=== PATIENT | female | born 1995 | race Caucasian/White ===

== ENCOUNTER 2020-10-15 15:51 | Emergency (ER) | payer OTHER, SELFPAY ==
[2020-10-15 16:04] VITALS: BP 110/80; PULSE 84; RESP 16; TEMP 36.3; O2SAT 100
--- NOTE | 2020-10-15 16:51 | ED.FEMALEGU ---
HPI - Female Genitourinary General Chief complaint: Urogenital-Female Stated complaint: UTI Time Seen by Provider: 10/15/20 16:39 Source: patient and RN notes reviewed Mode of arrival: ambulatory Limitations: no limitations History of Present Illness HPI Narrative: Patient presents today complaining of a 1 week history of dysuria with some lower abdominal discomfort. Denies frequency, hematuria, back pain. She has tried no [id number] treatment prior to arrival. MD elicited complaint: dysuria Related Data Allergies Allergy/AdvReac Type Severity Reaction Status Date / Time azithromycin Allergy Itching Verified 10/15/20 16:54 clarithromycin [From Biaxin] Allergy Nausea Verified 10/15/20 16:54 Review of Systems Review of Systems: Narrative: CONSTITUTIONAL: Denies body aches, fever, chills, or sweats. EYES: Denies visual changes, redness, or discharge. ENT: Denies rhinorrhea, congestion, sore throat, or otalgia. CARDIOVASCULAR: Denies chest pain, palpitations, or edema. RESPIRATORY: Denies cough or dyspnea. GASTROINTESTINAL: Denies abdominal pain, nausea, vomiting, or diarrhea. GENITOURINARY: Denies frequency or hematuria.+ Dysuria SKIN: Denies rash, itching, or wounds. MUSCULOSKELETAL: Denies back pain, joint pain, or myalgia. NEUROLOGIC: Denies headache, numbness, tingling, or weakness. PSYCH: Denies depression or anxiety. [facility] Past Medical History Medical History (Updated 10/15/20 @ 17:01 by Sammi Bailey, [facility], ) Autism Comments At time of signature, I have reviewed and agree with nursing past medical, surgical, social and family history unless otherwise noted. Please see nursing chart for further information. There is no relevant family history pertinent to the presenting complaint Exam Narrative: Exam Narrative: GENERAL: Well-appearing, well-nourished, and in no acute distress. HEAD: Normocephalic, atraumatic. EYES: EOMI. No redness or drainage. Conjunctivae normal. ENT: Mucous membranes pink and moist. NECK: Normal AROM. CHEST: No respiratory distress. MUSCULOSKELETAL: No bony tenderness. EXTREMITIES: Normal range of motion. No edema. SKIN: Warm, dry, no rash. Capillary refill normal. Normal skin turgor. NEURO: No focal deficits. Alert and oriented x3. Gait steady. PSYCH: Normal affect. No signs of depression or anxiety. Course Vital Signs Vital signs: Vital Signs Temperature 97.4 F L 10/15/20 16:04 Pulse Rate 84 10/15/20 16:04 Respiratory Rate 16 10/15/20 16:04 Blood Pressure 110/80 10/15/20 16:04 Pulse Oximetry 100 10/15/20 16:04 Temperature 97.4 F L 10/15/20 16:04 Pulse Rate 84 10/15/20 16:04 Respiratory Rate 16 10/15/20 16:04 Blood Pressure 110/80 10/15/20 16:04 Pulse Oximetry 100 10/15/20 16:04 Reviewed MDM - Female Genitourinary Differential Diagnosis Differential diagnosis: Likely urinary tract infection, cystitis and other (Pyelonephritis, interstitial cystitis, vulvovaginitis) Lab Data Attestation: I reviewed the patient's lab results. Labs: Urine Glucose Negative Reference Range: Negative Urine Bilirubin Negative Reference Range: Negative Urine Ketone Negative Reference Range: Negative Urine Specific [place] 1.020 Reference Range:1.001-1.035 Urine Blood 2+ Reference Range: Negative * * Urine pH 7.0 Reference Range: 5.0-9.0 Urine Protein Negative Reference Range: Negative Urine Urobilinogen 0.2
== END 2020-10-15 17:00 | disposition home or self-care (01) ==
PROVIDERS: Emergency Provider Nurse Practitioner; PCP Nurse Practitioner Psychiatric/Mental Health
DX: N30.01 Acute cystitis with hematuria (principal); E78.00 Pure hypercholesterolemia, unspecified; E03.9 Hypothyroidism, unspecified; F84.0 Autistic disorder; F41.9 Anxiety disorder, unspecified
CPT/HCPCS: 81003; 87086; 87088; 99203; G0463

== ENCOUNTER 2021-01-01 13:02 | Emergency (ER) | payer OTHER, SELFPAY ==
--- NOTE | ~2021-01-01 | XR_ITS ---
EXAMINATION: XR tibia fibula RT 2V EXAM DATE: 01/01/2021 13:20 INDICATION: Initial encounter following injury, with pain of the right tibia/fibula. Fell yesterday. TECHNIQUE: Right tibia/fibula frontal and lateral projections obtained and reviewed. There is no derrick or study for comparison. FINDINGS: Right tibial and fibular shafts unremarkable. . There are no acute fractures or dislocati ons identified. There is no subcutaneous gas. The soft tissue is unremarkable. There are no radio paque foreign bodies. IMPRESSION: No acute osseous findings. Reviewed, dictated and finalized at location A. IMPRESSION: No acute osseous findings.
[2021-01-01 13:10] VITALS: BP 116/74; PULSE 80; RESP 16; TEMP 37.1; O2SAT 100
[2021-01-01 13:16] VITALS: BP 116/74; PULSE 80; RESP 16; TEMP 37.1; O2SAT 100
--- NOTE | 2021-01-01 13:30 | ED.LOWEXIN ---
HPI - Extremity Injury (Lower) General Chief Complaint: Extremity Injury, Lower Stated Complaint: right knee pain Time Seen by Provider: 01/01/21 13:24 Source: patient and RN notes reviewed Mode of arrival: ambulatory Limitations: no limitations History of Present Illness HPI Narrative: 25-year-old female presents concern for right anterior leg pain, just below the knee. Reports bruising and superficial abrasion. Reports she fell yesterday landing on the concrete. Reports she is taking ibuprofen for pain. She denies decreased constipation range of motion. MD complaint: leg injury Related Data Home Medications Medication Instructions Recorded Confirmed atorvastatin 01/01/21 cetirizine mg 01/01/21 clonazepam 01/01/21 divalproex PO 01/01/21 hydroxyzine pamoate 01/01/21 levothyroxine 01/01/21 metoprolol succinate PO 01/01/21 montelukast mg 01/01/21 norethindrone-e.estradiol-iron tablet 01/01/21 [ ()] sertraline mg 01/01/21 Allergies Allergy/AdvReac Type Severity Reaction Status Date / Time clarithromycin Allergy Mild nausea Verified 04/27/16 05:26 azithromycin Allergy Unknown ITCHING Verified 04/27/16 05:26 Review of Systems Review of Systems: CONSTITUTIONAL: Denies malaise, chills, sweats, or fever. SKIN: Reports superficial abrasion to the right leg MUSCULOSKELETAL: Reports right anterior leg pain and swelling NEUROLOGIC: Denies numbness, weakness All systems reviewed & are unremarkable except as noted in HPI and below PMFSH Comments At time of signature, agree with nursing past medical, surgical, social and family history. There is no relevant family history pertinent to the presenting complaint Exam Narrative: GENERAL: Well-appearing, well-nourished, and in no acute distress. HEAD: Normocephalic, atraumatic. EYES: PERRLA, conjunctivae clear NECK: Supple. CHEST: Speaks in full sentences. No respiratory distress. HEART: Regular rate and rhythm. Normal and equal peripheral pulses. EXTREMITIES: Right knee, leg, ankle have grossly normal strength and sensation, normal range of motion. Mild anterior localized edema below the knee with very mild ecchymosis. Normal sensation with sensitivity to light touch and pain. No point tenderness. No open wounds, no skin tenting, no devitalized tissue or atrophy, no trophic changes, no obvious deformity, alignment normal, nearby joints and structures intact. Distal pulses palpable and equal bilaterally, skin warm, dry, pink. Capillary refill less than 3 seconds. SKIN: Warm, dry, no rash. Very superficial abrasion noted to the anterior right lower leg below the knee, without red or pink tissue bed, skin intact NEURO: Alert and oriented x3. PSYCH: Normal mood and affect Course Course Emergency Course: Patient is aware of diagnosis, understands and agrees to treatment plan. Anticipatory guidance given. Patient agrees to follow-up as directed and is aware of reasons to seek care at the emergency department. Portions of this record may have been created with voice recognition software Vital Signs Vital signs: Vital Signs Temperature 98.7 F 01/01/21 13:10 Pulse Rate 80 01/01/21 13:10 Respiratory Rate 16 01/01/21 13:10 Blood Pressure 116/74 01/01/21 13:10 Pulse Oximetry 100 01/01/21 13:10 Temperature 98.7 F 01/01/21 13:16 Pulse Rate 80 01/01/21 13:16 Respiratory Rate 16 01/01/21 13:16 Blood Pressure 116/74 01/01/21 13:16 Pulse Oximetry 100 01/01/21 13:16 Reviewed. MDM - Extremity Injury (Lower) MDM Narrative Medical decision making narrative: Patients injury and pain is consistent with musculoskeletal etiology. No signs of neurological or vascular compromise on exam. Compartments and tissues are soft without signs of compartment syndrome. Pain is felt appropriate for further evaluation on an outpatient basis. Critical Care Time Critical Care Time Critical Care Time: No Discharge Plan Discharge Cli
== END 2021-01-01 13:39 | disposition home or self-care (01) ==
PROVIDERS: Emergency Provider Nurse Practitioner; PCP Nurse Practitioner Psychiatric/Mental Health
DX: S89.91XA Unspecified injury of right lower leg, initial encounter (principal); W19.XXXA Unspecified fall, initial encounter; E78.00 Pure hypercholesterolemia, unspecified; E03.9 Hypothyroidism, unspecified; I49.9 Cardiac arrhythmia, unspecified
CPT/HCPCS: 73590; 99213; G0463

== ENCOUNTER 2021-01-19 12:32 | Emergency (ER) | payer OTHER, SELFPAY ==
[2021-01-19 12:41] VITALS: BP 102/65; PULSE 70; RESP 16; TEMP 36.4; O2SAT 99
--- NOTE | 2021-01-19 16:22 | ED.URI ---
HPI - URI/Sore Throat General Chief Complaint: Upper Respiratory Infection Stated Complaint: congestion Time Seen by Provider: 01/19/21 12:51 Source: patient and RN notes reviewed Mode of arrival: ambulatory Limitations: no limitations History of Present Illness HPI Narrative: Patient presents today complaining of 4-day history of rhinorrhea, headache, right ear pain, sore throat. Denies fever, nausea, vomiting, diarrhea. She currently rates her pain 5/10 and has been taking Tylenol Sinus and ibuprofen without relief. She has been vaccinated against COVID-19. MD elicited complaint: sore throat and rhinorrhea Related Data Home Medications Medication Instructions Recorded Confirmed atorvastatin 40 mg PO DAILY 10/15/20 10/15/20 cetirizine 10 mg PO DAILY 10/15/20 10/15/20 clonazepam 0.5 mg PO HS 10/15/20 10/15/20 divalproex 750 mg PO DAILY 10/15/20 10/15/20 hydroxyzine pamoate 25 mg PO TID 10/15/20 10/15/20 levothyroxine 25 mcg PO DAILY 10/15/20 10/15/20 metoprolol succinate 25 mg PO DAILY 10/15/20 10/15/20 montelukast 10 mg PO DAILY 10/15/20 10/15/20 norethindrone-e.estradiol-iron 1 tablet PO DAILY 10/15/20 10/15/20 [ (28)] sertraline 150 mg PO DAILY 10/15/20 10/15/20 Allergies Allergy/AdvReac Type Severity Reaction Status Date / Time azithromycin Allergy Itching Verified 10/15/20 16:54 clarithromycin [From Biaxin] Allergy Nausea Verified 10/15/20 16:54 Review of Systems Review of Systems: CONSTITUTIONAL: Denies body aches, fever, chills, or sweats. EYES: Denies visual changes, redness, or discharge. ENT: Denies congestion. + Rhinorrhea, right ear pain, sore throat CARDIOVASCULAR: Denies chest pain, palpitations, or edema. RESPIRATORY: Denies cough or dyspnea. GASTROINTESTINAL: Denies abdominal pain, nausea, vomiting, or diarrhea. GENITOURINARY: Denies dysuria or hematuria. SKIN: Denies rash, itching, or wounds. MUSCULOSKELETAL: Denies back pain, joint pain, or myalgia. NEUROLOGIC: Denies numbness, tingling, or weakness.+ Headache PSYCH: Denies depression or anxiety. [facility] Past Medical History Medical History Autism Comments At time of signature, I have reviewed and agree with nursing past medical, surgical, social and family history unless otherwise noted. Please see nursing chart for further information. There is no relevant family history pertinent to the presenting complaint Exam Narrative: GENERAL: Well-appearing, well-nourished, and in no acute distress. HEAD: Normocephalic, atraumatic. EYES: EOMI. No redness or drainage. Conjunctivae normal. ENT: Mucous membranes pink and moist. Nares clear. No rhinorrhea. Bilateral middle ear effusions, right greater than left. Throat normal. Uvula midline. NECK: Normal AROM. Supple. No lymphadenopathy. CHEST: No respiratory distress. Clear to auscultation. HEART: Regular rate and rhythm. No murmur appreciated. Normal peripheral pulses. EXTREMITIES: Normal range of motion. No edema. SKIN: Warm, dry, no rash. Capillary refill normal. Normal skin turgor. NEURO: No focal deficits. Alert and oriented x3. Gait steady. PSYCH: Normal affect. No signs of depression or anxiety. Course Vital Signs Vital signs: Vital Signs Temperature 97.5 F L 01/19/21 12:41 Pulse Rate 70 01/19/21 12:41 Respiratory Rate 16 01/19/21 12:41 Blood Pressure 102/65 01/19/21 12:41 Pulse Oximetry 99 01/19/21 12:41 Temperature 97.5 F L 01/19/21 12:41 Pulse Rate 70 01/19/21 12:41 Respiratory Rate 16 01/19/21 12:41 Blood Pressure 102/65 01/19/21 12:41 Pulse Oximetry 99 01/19/21 12:41 Reviewed MDM - URI/Sore Throat Differential Diagnosis Differential diagnosis: Likely upper respiratory infection, otitis media, sinusitis, pharyngitis and other (COVID-19) Lab Data Attestation: I reviewed the patient's lab results. Labs: Lab Results 01/19/21 Range/Units 13:15 POC
== END 2021-01-19 13:49 | disposition home or self-care (01) ==
PROVIDERS: Emergency Provider Nurse Practitioner
DX: J06.9 Acute upper respiratory infection, unspecified (principal); Z20.822 Contact with and (suspected) exposure to COVID-19; F84.0 Autistic disorder
CPT/HCPCS: 87426; 99213; C9803; G0463

== ENCOUNTER 2021-06-16 09:39 | Emergency (ER) | payer OTHER, SELFPAY ==
[2021-06-16 09:53] VITALS: BP 110/82; PULSE 85; RESP 18; TEMP 36.1; O2SAT 100
--- NOTE | 2021-06-16 10:06 | ED.URI ---
HPI - URI/Sore Throat General Chief Complaint: Upper Respiratory Infection Stated Complaint: Sore Throat Time Seen by Provider: 06/16/21 10:06 Source: patient Mode of arrival: ambulatory Limitations: no limitations History of Present Illness HPI Narrative: Nidhi Gu is a 25 yo female with a PMH of autism, depression, hypothyroid, high cholesterol, who comes to express care with sore throat, worse on L than R, no fever, x 2 days . She has had repeat bouts of strep and does not run fever normally when she has it, complaining that she has difficulty swallowing Related Data Home Medications Medication Instructions Recorded Confirmed atorvastatin 40 mg PO DAILY 10/15/20 10/15/20 cetirizine 10 mg PO DAILY 10/15/20 10/15/20 clonazepam 0.5 mg PO HS 10/15/20 10/15/20 divalproex 750 mg PO DAILY 10/15/20 10/15/20 hydroxyzine pamoate 25 mg PO TID 10/15/20 10/15/20 levothyroxine 25 mcg PO DAILY 10/15/20 10/15/20 metoprolol succinate 25 mg PO DAILY 10/15/20 10/15/20 montelukast 10 mg PO DAILY 10/15/20 10/15/20 norethindrone-e.estradiol-iron 1 tablet PO DAILY 10/15/20 10/15/20 [ ()] sertraline 150 mg PO DAILY 10/15/20 10/15/20 Allergies Allergy/AdvReac Type Severity Reaction Status Date / Time azithromycin Allergy Itching Verified 10/15/20 16:54 clarithromycin [From Biaxin] Allergy Nausea Verified 10/15/20 16:54 Review of Systems Review of Systems: CONSTITUTIONAL: Denies fever, chills, sweats. EYES: Denies visual changes, redness, discharge. ENT: Denies rhinorrhea, congestion, has sore throat, otalgia. CARDIOVASCULAR: Denies chest pain, palpitations, edema. RESPIRATORY: Denies dyspnea, wheezing, cough GASTROINTESTINAL: Denies abdominal pain, nausea, vomiting, diarrhea. GENITOURINARY: Denies dysuria, hematuria, abnormal discharge SKIN: Denies rash or itching. NEUROLOGIC: Denies numbness, or focal weakness. PSYCHIATRIC: Denies anxiety or depression. [facility] Past Medical History Medical History (Updated 06/16/21 @ 11:35 by Debbie Diaz CNP) Autism Depression High blood cholesterol Hypertension Hypothyroid Social History Social History (Updated 06/16/21 @ 10:15 by Debbie Diaz CNP) Smoking status: Never smoker Living arrangements: with family Comments At time of signature, I agree with nursing past medical, surgical, social and family history. There is no relevant family history pertinent to the presenting complaint. Exam Narrative: GENERAL: This is a well-nourished, well-developed patient, in mild distress. HEAD: normocephalic, atraumatic. EYES: PERRL. Sclera clear/white. Vision is grossly intact. EARS: External ears normal, auditory canals clear and without drainage, TMs normal without perforation. Hearing grossly intact. NOSE: External nose normal without nasal discharge, nares without redness, no rhinorrhea. THROAT: Mucous membranes moist, posterior pharynx erythema with some spots on the left side of posterior pharynx NECK: Neck supple, mild tenderness CARDIOVASCULAR: Regular rate and rhythm without murmurs, gallops, or rubs. RESPIRATORY: Clear to auscultation. Breath sounds equal bilaterally. No wheezes, rales, or rhonchi. GASTROINTESTINAL: Abdomen soft, SKIN: warm, intact with no suspicious lesions or rash, good texture and turgor. NEURO: awake, alert, and oriented to person, place and time. There were no obvious focal neurologic abnormalities. Steady gait EXTREMITIES: Normal range of motion. BACK: Nontender without deformity Course Course Emergency Course: Patient [facility] with complaints of sore throat and difficulty swallowing x2 days patient is not running a fever but usually does not run a fever with strep Rapid strep is negative sent for culture Started on amoxicillin 875 mg bid x 10 days and Diflucan Level of Care: [facility] Visit Vital Signs Vital signs: Vital Signs Temperature 97.0 F L 06/16/21 09:53 Pulse Rate 85 06/16/21 09:53 Res
== END 2021-06-16 10:21 | disposition home or self-care (01) ==
PROVIDERS: Emergency Provider Nurse Practitioner; PCP Nurse Practitioner Adult Health
DX: J02.8 Acute pharyngitis due to other specified organisms (principal); F84.0 Autistic disorder; E78.00 Pure hypercholesterolemia, unspecified; I10 Essential (primary) hypertension; E03.9 Hypothyroidism, unspecified; F32.A Depression, unspecified
CPT/HCPCS: 87081; 87880; 99213; G0463

== ENCOUNTER 2024-09-06 11:44 | Emergency (ER) | payer OTHER, SELFPAY ==
[2024-09-06 12:13] VITALS: BP 125/95; PULSE 96; RESP 16; TEMP 36.1; O2SAT 100
--- NOTE | 2024-09-06 12:24 | ED.EAR ---
HPI - Ear Problem General Chief complaint: Ear Stated complaint: EAR PAIN Time Seen by Provider: 09/06/24 12:20 Source: patient, RN notes reviewed and old records reviewed Mode of arrival: ambulatory Limitations: no limitations History of Present Illness HPI Narrative: 29-year-old female presents to the [facility] with complaints of right ear pain since Saturday, 4 days. Had been taking Advil and Tylenol. Related Data Home Medications ?Medication ?Instructions ?Recorded ?Confirmed ?Last Taken ?Type atorvastatin 40 mg tablet 40 mg PO DAILY 10/15/20 10/15/20 Unknown History cetirizine 10 mg tablet 10 mg PO DAILY 10/15/20 10/15/20 Unknown History clonazepam 0.5 mg tablet 0.5 mg PO HS 10/15/20 10/15/20 Unknown History divalproex 500 mg tablet,extended 750 mg PO DAILY 10/15/20 10/15/20 Unknown History release 24 hr hydroxyzine pamoate 25 mg capsule 25 mg PO TID 10/15/20 10/15/20 Unknown History levothyroxine 25 mcg tablet 25 mcg PO DAILY 10/15/20 10/15/20 Unknown History metoprolol succinate 25 mg 25 mg PO DAILY 10/15/20 10/15/20 Unknown History tablet,extended release 24 hr montelukast 10 mg tablet 10 mg PO DAILY 10/15/20 10/15/20 Unknown History norethindrone 1.5 mg-ethinyl 1 tablet PO DAILY 10/15/20 10/15/20 Unknown History estradiol 30 mcg(21)/iron 75 mg(7) tablet (Junel FE 1.5/30 (28)) sertraline 100 mg tablet 150 mg PO DAILY 10/15/20 10/15/20 Unknown History atorvastatin 40 mg tablet 01/01/21 Unknown History cetirizine 10 mg tablet mg 01/01/21 Unknown History clonazepam 0.5 mg tablet 01/01/21 Unknown History divalproex 500 mg tablet,extended PO 01/01/21 Unknown History release 24 hr hydroxyzine pamoate 25 mg capsule 01/01/21 Unknown History levothyroxine 25 mcg tablet 01/01/21 Unknown History metoprolol succinate 25 mg PO 01/01/21 Unknown History tablet,extended release 24 hr montelukast 10 mg tablet mg 01/01/21 Unknown History norethindrone 1.5 mg-ethinyl tablet 01/01/21 Unknown History estradiol 30 mcg(21)/iron 75 mg(7) tablet (Junel FE 1.5/30 (28)) sertraline 100 mg tablet mg 01/01/21 Unknown History Allergies Allergy/AdvReac Type Severity Reaction Status Date / Time azithromycin Allergy Itching Verified 09/06/24 12:10 clarithromycin (From Biaxin) AdvReac Nausea Verified 09/06/24 12:10 Review of Systems Review of Systems: All systems reviewed & are unremarkable except as noted in HPI and below Constitutional: Constitutional: Reports no additional constitutional complaints ENT: Reports as per HPI and Reports otalgia Cardiovascular: Cardiovascular: Reports no additional cardiovascular complaints, Denies chest pain and Denies dyspnea Respiratory: Respiratory: Reports no additional respiratory complaints, Denies chest congestion, Denies cough and Denies dyspnea Musculoskeletal: Musculoskeletal: Reports no additional musculoskeletal complaints Integumentary/Breasts: Skin/Breast: Reports system reviewed and no additional complaints, except as docu PMFSH Past Medical History Medical History Hypertension Depression Hypothyroid High blood cholesterol Autism Social History Social History Smoking status: Never smoker Living arrangements: with family Comments At the time of my signature, I reviewed and agree with the nursing past medical, surgical, social, and family history. There is no relevant family history pertinent to the patient complaint. Exam Const: General: cooperative, healthy appearing, comfortable, no acute distress, well developed, alert and well nourished Nutritional Appearance: well nourished Orientation/consciousness: patient oriented x3 Limitations: no limitations HENMT: Head: normal to inspection Ears: hearing grossly normal bilaterally, external ears normal, EAC's normal, mastoids normal, no periauricular adenopathy and TM abnormal bulging on the right and with fluid behind the TM bilateral Face/Nose/Sinus: Normal external nose present and Normal nares present Face and sinus: normal facial exam, sinuses nontender and face symmetric Throat: posterior oropharynx normal, uvula midline, abnormal tonsil, postnasal drainage and no uvular edema Eyes: General: appearance normal, both eyes and all related structures Alignment and Position: alignment normal Neck: Neck: normal visual inspection, full ROM, no lymphadenopathy and no meningeal signs Chest: Chest palpation & inspection: normal inspection of the chest Resp: Effort & Inspection: normal respiratory effort and able to speak in complete sentences Auscultation: clear to auscultation bilaterally, no crackles, no rales, no rhonchi and no wheezes Cardio: Rate: regular rate Skin: General skin exam: normal color and no rashes or lesions noted Neuro: General: patient oriented x3, gait normal, moves all extremities and no meningeal signs Cognition (Neuro): normal cognition Speech: normal speech Gait exam (Neuro): Normal gait present Extrem: General: normal to inspection, full ROM, capillary refill normal and normal gait Psych: Appearance: grossly normal and well kempt Mental Status: mental status grossly normal Speech and movement: Normal speech and movement present and Clear speech present Affect: normal affect Attitude: cooperative Course Course Level of Care: Express Care Visit Vital Signs Vital signs: Vital Signs Temperature 97.0 F L 09/06/24 12:13 Pulse Rate 96 09/06/24 12:13 Respiratory Rate 16 09/06/24 12:13 Blood Pressure 125/95 H 09/06/24 12:13 Pulse Oximetry 100 09/06/24 12:13 Oxygen Delivery Room Air 09/06/24 12:13 Temperature 97.0 F L 09/06/24 12:13 Pulse Rate 96 09/06/24 12:13 Respiratory Rate 16 09/06/24 12:13 Blood Pressure 125/95 H 09/06/24 12:13 Pulse Oximetry 100 09/06/24 12:13 Oxygen Delivery Room Air 09/06/24 12:13 Reviewed Medical Decision Making MDM Narrative Medical decision making narrative: Patient sitting comfortably in exam room. Nontoxic, vitals stable. Patient in no acute distress Patient presents with ear pain. Clear fluid noted behind bilateral ears, right side is bulging. Had discussed doing a Medrol dose pack, mom states that she cannot tolerate those. Discussed [id number] products, allergy medication and Flonase which mom verbalized understanding. Patient appropriate for outpatient treatment and follow-up Discharge instructions reviewed with patient, as well as provided in writing per nursing staff. The instructions also include specific and strict return/GO TO THE ER as well as f/u information. All questions have been answered, and the patient deny any further questions with discharge and discharge plan. Some parts of this dictation were generated by voice recognition software and may contain typographical and/or grammatical inaccuracies. Differential Diagnosis Differential Diagnosis: Otitis media, serous otitis, otitis externa, URI Medical Records Medical records reviewed: Yes I reviewed the external patient's medical records. Vital Signs Vital Signs: Vital Signs Temperature 97.0 F L 09/06/24 12:13 Pulse Rate 96 09/06/24 12:13 Respiratory Rate 16 09/06/24 12:13 Blood Pressure 125/95 H 09/06/24 12:13 Pulse Oximetry 100 09/06/24 12:13 Oxygen Delivery Room Air 09/06/24 12:13 Temperature 97.0 F L 09/06/24 12:13 Pulse Rate 96 09/06/24 12:13 Respiratory Rate 16 09/06/24 12:13 Blood Pressure 125/95 H 09/06/24 12:13 Pulse Oximetry 100 09/06/24 12:13 Oxygen Delivery Room Air 09/06/24 12:13 Reviewed Lab Data Lab results reviewed: Yes I reviewed the patient's lab results. Labs: Reviewed Critical Care Time Critical Care Time Critical Care Time: No Discharge Plan Discharge Clinical Impression: Acute serous otitis media of right ear Qualifiers: Recurrence: not specified as recurrent Qualified Code(s): H65.01 - Acute serous otitis media, right ear Patient Disposition: Home Condition: Stable Instructions: Antibiotic Form, Earache (ED), Fluid In The Ear (Serous Otitis Media) (ED) Additional Instructions: It is very important to treat your symptoms. Drink plenty of water, Gatorade, Pedialyte, ice pops or Jell-O. -Alternate Tylenol and Motrin per package directions for fever or pain. You can alternate every 4 hours -Antihistamine medication such as Zyrtec/Claritin/Jennifer during the day can help improve symptoms. -doing daily nasal irrigations can help relieve pressure your sinuses. Things like a Neti pot -Use Flonase twice a day for 5 days then daily to help reduce the inflammation and dry up your sinuses. -You can also use Mucinex. Be sure to drink plenty of water with this medication at least 8 ounces with every dose and it is important to drink 8 to 10 glasses of water per day. Water is a natural decongestant -Eat and drink things that are easy to swallow, like tea or soup, or popsicles. -Oral rinses such as: Salt water gargles and/or may use topical anesthetic (eg. Chloraseptic spray) or lozenges to relieve dryness or throat pain). -Frequent hand washing or hand enterprise application developer is one of the best ways to prevent spread of infection. -Using a vaporizer or humidifier at night will also help thin secretions and help with coughing up phlegm. -Follow up with primary care provider in 7-10 days if condition is not improving - For new or worsening symptoms go directly to the nearest ER Patient Language: Irish Prescriptions: No Action atorvastatin 40 mg tablet norethindrone-e.estradiol-iron [ ()] 1.5 mg-30 mcg (21)/75 mg (7) tablet cetirizine 10 mg tablet clonazepam 0.5 mg tablet sertraline 100 mg tablet levothyroxine 25 mcg tablet divalproex 500 mg tablet extended release 24 hr PO montelukast 10 mg tablet metoprolol succinate 25 mg tablet extended release 24 hr PO hydroxyzine pamoate 25 mg capsule amoxicillin 875 mg tablet 875 mg PO Q12H Qty: 20 0RF fluconazole [Diflucan] 150 mg tablet 150 mg PO ONCE Qty: 1 0RF Rx Instructions: as a single dose atorvastatin 40 mg tablet 40 mg PO DAILY norethindrone-e.estradiol-iron [ ()] 1.5 mg-30 mcg (21)/75 mg (7) tablet 1 tablet PO DAILY cetirizine 10 mg tablet 10 mg PO DAILY clonazepam 0.5 mg tablet 0.5 mg PO HS sertraline 100 mg tablet 150 mg PO DAILY levothyroxine 25 mcg tablet 25 mcg PO DAILY divalproex 500 mg tablet extended release 24 hr 750 mg PO DAILY montelukast 10 mg tablet 10 mg PO DAILY metoprolol succinate 25 mg tablet extended release 24 hr 25 mg PO DAILY hydroxyzine pamoate 25 mg capsule 25 mg PO TID Follow-up/Referrals: Shawn,Miriam Sweeney DO [Primary Care Provider] - 1 Week ([facility] care follow up ) Stand Alone Forms: Work/School Release IP Time of Disposition: 12:30
== END 2024-09-06 12:35 | disposition home or self-care (01) ==
PROVIDERS: Emergency Provider Nurse Practitioner; PCP Family Medicine
DX: H65.01 Acute serous otitis media, right ear (principal); I10 Essential (primary) hypertension; E03.9 Hypothyroidism, unspecified; E78.00 Pure hypercholesterolemia, unspecified; F84.0 Autistic disorder; F32.A Depression, unspecified
CPT/HCPCS: 99211; G0463